=== PATIENT | female | born 1985 | race Caucasian/White ===

== ENCOUNTER 2023-08-15 13:24 | Outpatient (CLI) | payer OTHER | END 2023-08-15 13:25 | disposition home or self-care (01) | LOC: BICMRI 13:24 | PROVIDERS: ATTEND Orthopaedic Surgery | DX: S83.511A Sprain of anterior cruciate ligament of right knee, initial encounter (principal); S83.242A Other tear of medial meniscus, current injury, left knee, initial encounter; R93.7 Abnormal findings on diagnostic imaging of other parts of musculoskeletal system ==